=== PATIENT | female | born 1990 | race African-American/Black ===

== ENCOUNTER 2020-06-13 11:18 | Inpatient (IN) | payer OTHER ==
[2020-06-13 11:58] LABS: BASO % 0.5 % (0-2.0); EOS % 0.7 % (0-4.5); HEMATOCRIT 39.9 % (32.4-45.2); HEMOGLOBIN 13.1 GM/dL (10.7-15.3); LYMPH % 14.8 % (8-40); MCH 26.7 pg (25.7-33.7); MCHC 32.7 g/dl (32.0-36.0); MEAN CELL VOLUME 81.6 fl (80-96); MEAN PLT VOLUME 9.4 fl (7.5-11.1); MONO % 9.2 % (3.8-10.2); NEUT % 74.8 % (42.8-82.8); PLATELET COUNT 179 K/MM3 (134-434); RBC 4.89 M/mm3 (3.60-5.2); RDW 14.8 % (11.6-15.6); WHITE BLOOD COUNT 8.7 K/mm3 (4.0-10.0)
[2020-06-13 12:05] LABS: INR 0.94 (0.83-1.09); PROTHROMBIN TIME (PATIENT) 11.6 SEC (9.7-13.0)
[2020-06-13 12:08] LABS: ACTIVATED PTT 26.2 SECONDS (25.2-36.5)
[2020-06-13 12:17] LABS: CALCIUM 9.6 mg/dL (8.5-10.1)
[2020-06-13 12:18] LABS: BLOOD UREA NITROGEN 7.1 mg/dL (7-18)
[2020-06-13 12:21] LABS: CREATININE 0.6 mg/dL (0.55-1.3)
[2020-06-13] MEDS ORDERED: OXYTOCIN 20 UNITS in 0.9% NS 20 UNIT/1,000 ML INFUS.BAG IV ONE (13:27)
[2020-06-13] MEDS ORDERED: BISACODYL 10 MG SUPP.RECT RC PRN (13:39)
[2020-06-13] MEDS ORDERED: BENZOCAINE 20% 57 GM BOTTLE TP PRN (13:39)
[2020-06-13] MEDS ORDERED: ACETAMINOPHEN 325 MG TABLET (FP) PO PRN (13:39)
[2020-06-13] MEDS ORDERED: WITCH HAZEL 50% (TUCKS) 40 PAD/JAR PAD TP PRN (13:39)
[2020-06-13] MEDS ORDERED: IBUPROFEN 600 MG TABLET (FP) PO PRN (13:39)
[2020-06-13] MEDS ORDERED: METHYLERGONOVINE MALEATE 0.2 MG/1 ML AMP IM PRN (13:39)
[2020-06-13] MEDS ORDERED: BENZOCAINE 28 GM HEMORRHOIDAL OINTMENT TP PRN (13:39)
[2020-06-13] MEDS ORDERED: OXYTOCIN 20 UNITS in 0.9% NS 20 UNIT/1,000 ML INFUS.BAG IV SCH (13:45)
[2020-06-13 14:16] VITALS: BMI 40.3
[2020-06-13] MEDS ORDERED: AMPICILLIN - 2 GM in SODIUM CHLORIDE 100 ML IVPB ONE (14:30)
[2020-06-14 08:14] LABS: BASO % 0.4 % (0-2.0); EOS % 1.4 % (0-4.5); HEMATOCRIT 39.8 % (32.4-45.2); LYMPH % 17.3 % (8-40); MCH 26.9 pg (25.7-33.7); MCHC 32.7 g/dl (32.0-36.0); MEAN CELL VOLUME 82.2 fl (80-96); MEAN PLT VOLUME 9.6 fl (7.5-11.1); MONO % 9.3 % (3.8-10.2); NEUT % 71.6 % (42.8-82.8); PLATELET COUNT 168 K/MM3 (134-434); RBC 4.84 M/mm3 (3.60-5.2); RDW 15.1 % (11.6-15.6); WHITE BLOOD COUNT 10.1 K/mm3 (4.0-10.0)
[2020-06-14] MEDS ORDERED: SENNOSIDES/DOCUSATE COMBO (SENNA PLUS) TABLET (UD) PO PRN (22:00)
[2020-06-15 13:18] VITALS: BP 108/73; PULSE 73; TEMP 98.6
== END 2020-06-15 10:15 | disposition home or self-care (01) | DRG 807 ==
LOC: JLDR 11:18 → J3W 15:20
PROVIDERS: ADMIT Obstetrics & Gynecology; ATTEND Obstetrics & Gynecology
PROC: 10E0XZZ Delivery of Products of Conception, External Approach (ICD-10-PCS; principal; 2020-06-13)
DX: O80 Encounter for full-term uncomplicated delivery (principal); Z3A.39 39 weeks gestation of pregnancy; Z37.0 Single live birth
CPT/HCPCS: 36415; 59409; 80048; 85025; 85610; 85730; 86780; 86850; 86900; 86901; C9803; U0003